=== PATIENT | female | born 1940 | race Caucasian/White ===

== ENCOUNTER 2017-08-10 11:59 | Emergency (ER) | payer MEDICARE, MEDICAID ==
[~2017-08-10] VITALS: Ht 142.2 cm; Wt 59.0 kg
[2017-08-10 13:27] VITALS: BP 169/57
== END 2017-08-10 18:25 | disposition home or self-care (01) ==
LOC: ER 11:59
DX: B36.9 Superficial mycosis, unspecified (principal); I10 Essential (primary) hypertension; M19.90 Unspecified osteoarthritis, unspecified site; Z90.49 Acquired absence of other specified parts of digestive tract; Z90.710 Acquired absence of both cervix and uterus
CPT/HCPCS: 99283